=== PATIENT | male | born 1970 | race American Indian/Alaskan Native ===

== ENCOUNTER 2021-03-29 14:14 | Emergency (ER) | payer SELFPAY ==
[2021-03-29 14:29] VITALS: BP 133/81
[2021-03-29] MEDS ORDERED: ASPIRIN 325 MG TAB PO ONE (15:33)
--- NOTE | 2021-04-01 17:22 | Electrocardiograph Report ---
[facility] Test Date: 2021-03-29 Test Time: 14:23:43 Pat Name: DEANDRE TORRES Department: Room: Gender: M [employer]: TV : 1970 Requested By: KIARRA BECKFORD Order Number: [id number] Reading MD: Willow Sterling Measurements Intervals Stringer Rate: 105 P: 52 ND: 153 QRS: 26 QRSD: 101 T: 16 QT: 323 QTc: 429 Interpretive Statements Sinus tachycardia No previous ECG available for comparison Electronically Signed On 04-01-2021 17:21:49 EST by Willow Sterling
== END 2021-03-29 17:41 | disposition left against medical advice (07) ==
LOC: ED 14:14
DX: R07.9 Chest pain, unspecified (principal); Z53.21 Procedure and treatment not carried out due to patient leaving prior to being seen by health care provider
CPT/HCPCS: 93005; 93010